=== PATIENT | female | born 1990 | race Caucasian/White ===

== ENCOUNTER 2016-10-24 13:30 | Outpatient (RCR) | payer OTHER ==
[~2016-10-24 13:30] MED LIST: ANTIDEPRESSANT; ANTIVERT 25MG25 MG PO; ATIVAN 1MG T1 MG/TAB PO; BIRTH CONTROL PO; DOXYCYCLINE 10100 MG PO; FLONASE NASAL S16 GM NS; JOLIVETTE0.35 MG PO; LAMICTAL200 MG PO; LATUDA20 MG PO; NEXPLANON68 MG ID; NORCO 325 MG-51 TAB PO; PERCOCET 325 MG1 TA2 PO; PRIL40 PO; Q-VAR PO; QVAR0.08 MG/AC IH; VOLTAREN 75 DR75 MG PO; XOPENEX 1.1.25 MG/3 IH; XOPENEX HF0.045 MG/A IH; ZOFRAN 4MG T4 MG/TAB PO; ZYRTEC5 MG PO
[2017-01-14] MEDS ORDERED: LAMICTAL200 MG PO (13:06)
[2017-01-15] MEDS ORDERED: VOLTAREN 75 DR75 MG PO (18:43)
== END 2017-03-13 09:28 | disposition home or self-care (01) ==
LOC: WSPT
DX: Z47.89 Encounter for other orthopedic aftercare (principal); M75.21 Bicipital tendinitis, right shoulder
CPT/HCPCS: G0283-GP

== ENCOUNTER 2016-12-24 09:00 | Outpatient (RCR) | payer SELFPAY ==
[2017-01-14] MEDS ORDERED: LAMICTAL200 MG PO (13:06)
[2017-01-15] MEDS ORDERED: VOLTAREN 75 DR75 MG PO (18:43)
== END 2017-01-27 | disposition home or self-care (01) ==
LOC: WSPT
DX: Z47.89 Encounter for other orthopedic aftercare (principal); M25.811 Other specified joint disorders, right shoulder

== ENCOUNTER 2017-01-14 13:00 | Emergency (ER) | payer SELFPAY ==
[~2017-01-14] VITALS: Ht 162.6 cm; Wt 61.4 kg
[2017-01-14 13:02] VITALS: BP 137/76; TEMP 98.3
[2017-01-14] MEDS ORDERED: LAMICTAL200 MG PO (13:06)
[2017-01-14 13:39] LABS: BASO # 0.1 (0.0-0.2); BASO % 0.6 % (0.0-2.0); EOS # 0.1 (0.0-0.7); EOS % 0.9 % (0-4.0); GRAN # 5.1 (1.4-6.5); GRAN % 63.7 % (42.2-75.2); HEMATOCRIT 43.6 % (37.0-47.0); HEMOGLOBIN 14.7 g/dl (12.5-16.0); LYMPH # 2.2 (1.2-3.4); MEAN CELL VOLUME 91 fl (80.0-100.0); MEAN CORPUSCULAR HEMOGLOBIN 31 pg (27.0-31.0); MEAN CORPUSCULAR HGB CONC 34 g/dl (33.0-37.0); MEAN PLATELET VOLUME 8.6 fl (7.4-10.4); MONO # 0.5 (0.1-0.6); MONO % 6.5 % (1.7-9.3); PLATELET COUNT 370 K/mm3 (130-400); RED BLOOD COUNT 4.77 M/mm3 (4.10-5.30); REDCELL DISTRIBUTION WIDTH-CV 12.5 % (11.5-14.5)
[2017-01-14 13:43] LABS: PH 5 (5-8); SQUAMOUS EPITHELIAL 0-2 /hpf; URINE APPEARANCE Clear; URINE BACTERIA Rare /hpf; URINE BILIRUBIN Negative (NEGATIVE); URINE BLOOD Negative (NEGATIVE); URINE COLOR Straw; URINE GLUCOSE Negative (NEGATIVE); URINE KETONE Negative (NEGATIVE); URINE RBC None Seen /hpf; URINE UROBILINOGEN Negative (NEGATIVE); URINE WBC 0-2 /hpf
[2017-01-14 13:59] LABS: ADJUSTED CALCIUM 8.9 mg/dL (8.4-10.2); ALANINE AMINOTRANSFERASE 28 U/L (9-52); ALKALINE PHOSPHATASE 58 U/L (50-136); ANION GAP 13 mmol/L (7-16); BILIRUBIN,TOTAL 0.9 mg/dL (0.0-1.0); BLOOD UREA NITROGEN 14 mg/dL (7-17); CALCIUM 9.7 mg/dL (8.4-10.2); CARBON DIOXIDE 27 mmol/L (22-30); CHLORIDE 102 mmol/L (98-107); CREATININE, serum 0.96 mg/dL (0.52-1.25); GLUCOSE 90 mg/dL (74-106); POTASSIUM 3.9 mmol/L (3.4-5.0); SODIUM 142 mmol/L (137-145); TOTAL PROTEIN 7.8 gm/dL (6.4-8.2)
[2017-01-14 14:04] LABS: C-REACTIVE PROTEIN < 0.5 mg/dL (0.0-0.9)
[2017-01-14 16:35] VITALS: PULSE 72
[2017-01-15] MEDS ORDERED: VOLTAREN 75 DR75 MG PO (18:43)
== END 2017-01-14 16:39 | disposition home or self-care (01) ==
LOC: COL.ER 13:00
PROVIDERS: Nurse Practitioner
DX: R10.31 Right lower quadrant pain (principal); R11.0 Nausea; R68.83 Chills (without fever); R63.0 Anorexia; F31.9 Bipolar disorder, unspecified
CPT/HCPCS: J2405; J7030

== ENCOUNTER 2017-01-15 17:19 | Emergency (ER) | payer SELFPAY ==
[~2017-01-15] VITALS: Ht 162.6 cm; Wt 61.4 kg
[2017-01-15 17:21] VITALS: BP 122/69; TEMP 98.1
[2017-01-15 17:55] LABS: BASO # 0.1 (0.0-0.2); BASO % 0.8 % (0.0-2.0); EOS # 0.1 (0.0-0.7); EOS % 0.8 % (0-4.0); GRAN # 4.8 (1.4-6.5); GRAN % 60.9 % (42.2-75.2); HEMATOCRIT 39.1 % (37.0-47.0); HEMOGLOBIN 13.1 g/dl (12.5-16.0); LYMPH # 2.4 (1.2-3.4); MEAN CELL VOLUME 92 fl (80.0-100.0); MEAN CORPUSCULAR HEMOGLOBIN 31 pg (27.0-31.0); MEAN CORPUSCULAR HGB CONC 34 g/dl (33.0-37.0); MEAN PLATELET VOLUME 8.6 fl (7.4-10.4); MONO # 0.5 (0.1-0.6); MONO % 6.2 % (1.7-9.3); PLATELET COUNT 333 K/mm3 (130-400); RED BLOOD COUNT 4.27 M/mm3 (4.10-5.30); REDCELL DISTRIBUTION WIDTH-CV 12.5 % (11.5-14.5); WHITE BLOOD COUNT 7.8 K/mm3 (4.8-10.8)
[2017-01-15 18:15] LABS: ADJUSTED CALCIUM 8.8 mg/dL (8.4-10.2); ALBUMIN 4.4 gm/dL (3.5-5.0); BILIRUBIN,TOTAL 0.6 mg/dL (0.0-1.0); CALCIUM 9.1 mg/dL (8.4-10.2); CREATININE, serum 0.93 mg/dL (0.52-1.25); POTASSIUM 3.9 mmol/L (3.4-5.0); TOTAL PROTEIN 6.9 gm/dL (6.4-8.2)
[2017-01-15] MEDS ORDERED: VOLTAREN 75 DR75 MG PO (18:43)
[2017-01-15 19:13] VITALS: PULSE 63
== END 2017-01-15 19:15 | disposition home or self-care (01) ==
LOC: COL.ER 17:19
PROVIDERS: Emergency Medicine
DX: S39.011A Strain of muscle, fascia and tendon of abdomen, initial encounter (principal); X50.0XXA Overexertion from strenuous movement or load, initial encounter; Y92.39 Other specified sports and athletic area as the place of occurrence of the external cause; F31.9 Bipolar disorder, unspecified; J45.909 Unspecified asthma, uncomplicated
CPT/HCPCS: J1885; J7030; Q9967